=== PATIENT | male | born 2000 ===

== ENCOUNTER 2018-02-20 14:40 | Emergency (ER) | payer OTHER ==
[2018-02-20 15:34] VITALS: BP 135/79
--- NOTE | 2018-02-20 16:14 | UC ---
Skin Complaint HPI - HPI Summary HPI Summary: The patient is a 18 y/o M presenting to [facility] with a chief complaint of two small scratches in the lateral proximal phalanx of the right third digit noticed this morning. He had woken up to the scratches that have an unknown source. He is concerned for possible bat scratch because he has had bats in his house before although he didn't see one there today. There is no pain associated. He denies fever, chills, chest pain, nausea, vomiting, and headache. He spoke with the Health Department when he arrived to with nurse Shwetha Florentino at the check-in desk, who contacted the [facility] Department and discussed his presentation and the rabies vaccine was not recommended by the [facility] . He is not UTD on his tetanus vaccine. - History of Current Complaint Chief Complaint: UCSkin Time Seen by Provider: 02/20/18 15:56 Stated Complaint: FINGER COMPLAINT Hx Obtained From: Patient Onset/Duration: Sudden Onset, Lasting Hours - this morning, Still Present Skin Exposure Onset/Duration: Hours Ago - unsure but noticed this morning Timing: Constant Onset Severity: Mild Current Severity: Mild Pain Intensity: 0 Pain Scale Used: 0-10 Numeric Location: Hand (Right) - lateral proximal phalanx of the right third digit Aggravating Factor(s): Nothing Alleviating Factor(s): Nothing Associated Signs & Symptoms: Negative: Nausea, Vomiting, Fever, Chills, Chest Pain - Allergy/Home Medications Allergies/Adverse Reactions: Allergies Allergy/AdvReac Type Severity Reaction Status Date / Time No Known Allergies Allergy Verified 02/20/18 15:34 Home Medications: Home Medications Loratadine [Claritin 10 MG CAP] 1 tab PO DAILY 02/20/18 [History Confirmed 02/20] NK [No Home Medications Reported] 02/20/18 [History Confirmed 02/20/18] Review of Systems Constitutional: Negative, Other - NEGATIVE: fever, chills Skin: Other - two scratches on lateral proximal phalanx of the right third digit Eyes: Negative ENT: Negative Respiratory: Negative Cardiovascular: Negative, Other - NEGATIVE: chest pain Gastrointestinal: Negative, Other - NEGATIVE: nausea, vomiting Genitourinary: Negative Motor: Negative Neurovascular: Negative Musculoskeletal: Negative Neurological: Negative, Other - NEGATIVE: headache Psychological: Negative Is Patient Immunocompromised?: No All Other Systems Reviewed And Are Negative: Yes PMH/Surg Hx/FS Hx/Imm Hx Previously Healthy: Yes Endocrine History: Other Other Endocrine History: NEGATIVE: diabetes Other Cardiovascular History: negative Respiratory History: Other Other Respiratory History: NEGATIVE: asthma Other GI/ History: negative Other Neurological History: negative Other Psychological History: negative Other Cancer History: negative - Surgical History Surgical History: None - Family History Known Family History: Negative: Cardiac Disease, Hypertension, Diabetes - Social History Alcohol Use: Occasionally Substance Use Type: None Smoking Status (MU): Never Smoked Tobacco - Immunization History Most Recent Tetanus Shot: 10 years ago Physical Exam - Summary Physical Exam Summary: Appearance: Well-Appearing, No Pain Distress, Well-Nourished Eyes: conjunctiva clear, no discharge ENT: Hearing grossly normal, no muffled/hoarse voice. Neck: Normal, Supple Respiratory/Lung Sounds: Lungs clear, Normal breath sounds, No respiratory distress, No accessory muscle use Cardiovascular: RRR, No murmur Abdomen: Nontender, Soft, no guarding, not distended Bowel Sounds: Present Musculoskeletal: Normal Neurological: Alert, muscle tone normal Psychiatric:Normal, age appropriate behavior Skin: Warm, Dry, Normal color, Small cut(superficial) on the inside of the right middle finger, no discharge, no swelling Triage Information Reviewed: Yes Vital Signs: Initial Vital Signs Temp 98.6 F 02/20/18 15:30 Pulse 72 02/20/18 15:30 Resp 12 02/20/18 15:30 BP 135/79 02/20/18 15:30 Pulse Ox 100 02/20/18 15:30 Vital Signs Reviewed: Yes Course/Dx - Course Course Of Treatment: During the visit today, health Department was contacted and they did not recommend any rabies vaccine or immunoglobulin since there was no bat seen. Also he doesn't remember if he might have scratched it somewhere. There is no sign of infection. We discussed the findings and further plan. DTaP was updated today and we will was his wound was dressed. Patient expressed understanding . - Diagnoses Provider Diagnoses: Small superficial wound of right middle finger. Discharge - Sign-Out/Discharge Documenting (check all that apply): Patient Departure - Patient will be discharged home. All imaging exams completed and their final reports reviewed: No Studies - Discharge Plan Condition: Stable Disposition: HOME Patient Education Materials: Wound Infection (ED) Referrals: [facility] [place] [facility] [Outside] Additional Instructions: Follow up with your primary care doctor in 2 days. If you develop fever, headache, nausea, vomiting, abdominal pain, respiratory distress, muscle pain or dizziness he is returned to the urgent care or the ER immediately. Return to Urgent care / ER if symptoms get worse. - Billing Disposition and Condition Condition: STABLE Disposition: Home - Attestation Statements Document Initiated by Sonja: Yes Documenting Scribe: Opal Bush Provider For Whom Sonja is Documenting (Include Credential): Dr. Rossy Rocha MD Scribe Attestation: Opal Adan, scribed for Dr. Rossy Rocha MD on 02/20/18 at 1659. Scribe Documentation Reviewed: Yes Provider Attestation: The documentation as recorded by the Opal kate accurately reflects the service I personally performed and the decisions made by me, Dr. Rossy Rocha MD
[2018-02-20] MEDS ORDERED: Tetan/Diph/Pertus SYR(Tdap)* 0.5 ML SYR(BOOSTRIX) use SYR IM ONE (16:17)
== END 2018-02-20 16:28 | disposition home or self-care (01) ==
LOC: UCEAST 14:40
DX: S60.412A Abrasion of right middle finger, initial encounter (principal); X58.XXXA Exposure to other specified factors, initial encounter; Y93.9 Activity, unspecified; Y92.003 Bedroom of unspecified non-institutional (private) residence as the place of occurrence of the external cause; Z23 Encounter for immunization
CPT/HCPCS: 90471; 90715; 99201; G0463